=== PATIENT | female | born 1940 | race Caucasian/White ===

== ENCOUNTER 2024-07-16 12:19 | Emergency (ER) | payer OTHER, MEDICARE ==
[2024-07-16] MEDS ORDERED: ACETAMINOPHEN INJECTION 100 ML ONE (13:08)
[2024-07-16 13:11] VITALS: BMI 19.4
[2024-07-16] MEDS: ACETAMINOPHEN 1000 MG/100 ML BAG IVPB ONE (13:20)
[2024-07-16 13:58] LABS: BASO % 0.5 % (0-2.0); EOS % 0.8 % (0-4.5); HEMATOCRIT 41.1 % (32.4-45.2); HEMOGLOBIN 13.8 GM/dL (10.7-15.3); LYMPH % 23.4 % (8-40); MCH 33.4 pg (25.7-33.7); MCHC 33.6 g/dl (32.0-36.0); MEAN CELL VOLUME 99.4 fl (80-96); MEAN PLT VOLUME 7.6 fl (7.5-11.1); MONO % 7.2 % (3.8-10.2); NEUT % 68.1 % (42.8-82.8); PLATELET COUNT 347 10^3/uL (134-434); RBC 4.14 M/mm3 (3.60-5.2); RDW 13.5 % (11.6-15.6); WHITE BLOOD COUNT 4.8 K/mm3 (4.0-10.0)
[2024-07-16 14:02] LABS: POTASSIUM 3.8 mmol/L (3.5-5.1)
[2024-07-16 14:04] LABS: CALCIUM 9.9 mg/dL (8.5-10.1)
[2024-07-16 14:05] LABS: ALBUMIN 4.4 g/dl (3.4-5.0); BLOOD UREA NITROGEN 18.4 mg/dL (7-18)
[2024-07-16 14:07] LABS: ACTIVATED PTT 35.2 SECONDS (25.2-36.5); INR 1.04 (0.83-1.09)
[2024-07-16 14:08] LABS: CREATININE 0.8 mg/dL (0.55-1.3)
[2024-07-16 14:10] LABS: BILIRUBIN,TOTAL 0.4 mg/dL (0.2-1); TOT PROT 7.4 g/dl (6.4-8.2)
[2024-07-16] MEDS ORDERED: DIPHTH,PERTUSS(ACELL),TET 0.5 ML DISP.SYRIN IM ONE (17:33)
[2024-07-16] MEDS: DIPHTH,PERTUSS(ACELL),TET 0.5 ML DISP.SYRIN IM ONE (17:35)
[2024-07-16 19:53] VITALS: BP 149/76; PULSE 82; RESP 17; TEMP 97.6
== END 2024-07-16 19:53 | disposition home or self-care (01) ==
LOC: JER 12:19
PROC: 09Q1XZZ Repair Left External Ear, External Approach (ICD-10-PCS; principal; 2024-07-16)
PROC: 3E033NZ Introduction of Analgesics, Hypnotics, Sedatives into Peripheral Vein, Percutaneous Approach (ICD-10-PCS; 2024-07-16)
PROC: 3E0234Z Introduction of Serum, Toxoid and Vaccine into Muscle, Percutaneous Approach (ICD-10-PCS; 2024-07-16)
DX: S01.312A Laceration without foreign body of left ear, initial encounter (principal); W10.8XXA Fall (on) (from) other stairs and steps, initial encounter; Z23 Encounter for immunization
CPT/HCPCS: 12011-25; 36415; 70450-TC; 70486-TC; 71101-TC-LT-FY; 71250-TC; 72125-TC; 73560-TC-LT-FY; 73560-TC-RT-FY; 80053; 85025; 85610; 85730; 86850; 86900; 86901; 90471; 90715; 93005; 93010; 96374; 99284-25; J0131